=== PATIENT | male | born 1945 | race Two or more races ===

== ENCOUNTER 2017-03-13 11:56 | Inpatient (IN) | payer OTHER ==
[~2017-03-13] VITALS: Ht 165.1 cm; Wt 86.5 kg
[2017-03-13 13:23] LABS: Basophils # (auto) 0.1 uL; Basophils % (auto) 0.6 % (0.0-2.0); Eosinophils # (auto) 0.1 uL; Eosinophils % (auto) 1.6 % (0.0-7.0); Hemoglobin 14.1 g/dL (13.5-17.5); Lymphocytes # (auto) 1.7 uL; Lymphocytes % (auto) 19.2 % (10.0-50.0); Mean Corpuscular Hemoglobin 28.8 pg (28.0-32.0); Mean Corpuscular Hgb Conc. 32.9 g/dL (32.0-36.0); Mean Corpuscular Volume 87.5 fL (80.0-100.0); Monocytes # (auto) 0.6 uL; Monocytes % (auto) 7.1 % (0.0-12.0); Neutrophils # (auto) 6.5 uL; Neutrophils % (auto) 71.5 % (37.0-80.0); Platelet Count (auto) 245 10^3/uL (140-450); Red Blood Cells 4.91 10^6/uL (4.5-5.90); Red Cell Distribution Width 13.7 % (11.8-14.3); White Blood Cell 9.1 10^3/uL (4.4-10.8)
[2017-03-13 13:40] LABS: Albumin 3.8 g/dL (3.4-5.0); BUN/Creatinine Ratio 14.3; Bilirubin, Total 0.3 mg/dL (0.2-1.0); Calcium 9.4 mg/dL (8.5-10.1); Magnesium 2.2 mg/dL (1.6-2.6); Potassium 4.4 mmol/L (3.5-5.1); Total Protein 7.5 g/dL (6.4-8.2)
[2017-03-13] MEDS ORDERED: SODIUM CHLORIDE 0.9% 1,000 ML IV ONE (14:09)
[2017-03-13 16:41] LABS: Urine Bacteria NONE SEEN /hpf (None Seen); Urine Blood Negative /uL (Negative); Urine Specific Gravity 1.017 (1.001-1.035); Urine WBC 2 /hpf (0 - 3)
[2017-03-13] MEDS ORDERED: PROMETHAZINE HCL 25 MG/ML 1ML IV ONE (16:45)
[2017-03-13] MEDS ORDERED: NALBUPHINE HCL 10 MG/1ml INJECTION IV ONE (16:45)
[2017-03-13] MEDS ORDERED: metroNIDAZOLE 500MG/100ML 100 ML IV ONE (17:15)
[2017-03-13] MEDS ORDERED: NITROGLYCERIN 0.4 MG SL TAB SL PRN (17:15)
[2017-03-13] MEDS ORDERED: MORPHINE SULFATE 10 MG/ML INJ 1ML SDV IV PRN (17:15)
[2017-03-13] MEDS ORDERED: TEMAZEPAM 15 MG CAP PO PRN (17:15)
[2017-03-13] MEDS ORDERED: MORPHINE SULF INJ 2 MG/ML SYRINGE 1ML IV PRN (17:15)
[2017-03-13] MEDS ORDERED: DEXTROSE (50%) 50ML SYRG IV PRN (17:15)
[2017-03-13] MEDS ORDERED: PANTOPRAZOLE 40 MG/10 ML VIAL IV ONE (17:15)
[2017-03-13] MEDS ORDERED: MORPHINE SULFATE 4 MG/ML SYR/VIAL IV PRN (17:15)
[2017-03-13] MEDS ORDERED: TAMSULOSIN HYDROCHLORIDE 0.4 MG CAP PO ONE (17:15)
[2017-03-13] MEDS ORDERED: PROMETHAZINE HCL 25 MG/ML 1ML IV PRN (17:15)
[2017-03-13] MEDS ORDERED: LORazepam 2MG/ML-1ML VIAL ONE (17:17)
[2017-03-13] MEDS ORDERED: HALOPERIDOL LACTATE 5 MG/ML INJ VIAL ONE (17:43)
[2017-03-13] MEDS ORDERED: HALOPERIDOL LACTATE 5 MG/ML INJ VIAL IV ONE (18:00)
[2017-03-13] MEDS: InsuLIN REG 1unit/0.01ml Soln (100units/ml) SC SCH (18:00)
[2017-03-13] MEDS ORDERED: LORazepam 2MG/ML-1ML VIAL IV ONE (18:00)
[2017-03-13] MEDS ORDERED: THIAMINE HCL 100 MG/ML 2ML VIAL IV ONE (18:15)
[2017-03-13] MEDS: SODIUM CHLORIDE 0.9% 1,000 ML IV SCH ×2 (18:56→23:54)
[2017-03-13] MEDS: cefTRIAXone 1GM/10ml IVPUSH 10 ML IV SCH (19:11)
[2017-03-13] MEDS: metroNIDAZOLE 500MG/100ML 100 ML IV SCH (19:11)
[2017-03-13] MEDS: ACCU-CHEK COMFORT CURVE STRIP VI SCH (19:32)
[2017-03-13] MEDS ORDERED: DILTIAZEM HCL 25 MG/5 ML VIAL IV ONE (21:45)
[2017-03-14] MEDS: LORazepam 0.5 MG TAB PO PRN ×2 (00:18→18:15)
[2017-03-14] MEDS: HALOPERIDOL LACTATE 5 MG/ML INJ VIAL IM PRN (00:18)
[2017-03-14] MEDS: ACCU-CHEK COMFORT CURVE STRIP VI SCH ×4 (00:29→18:14)
[2017-03-14] MEDS: metroNIDAZOLE 500MG/100ML 100 ML IV SCH ×3 (01:28→18:13)
[2017-03-14] MEDS: chlordiazePOXIDE HCL 25 MG CAP PO PRN ×3 (01:57→18:15)
[2017-03-14 05:34] LABS: Basophils # (auto) 0 uL; Basophils % (auto) 0.3 % (0.0-2.0); Eosinophils # (auto) 0.2 uL; Eosinophils % (auto) 1.1 % (0.0-7.0); Hematocrit 42.1 % (41.0-53.0); Hemoglobin 13.6 g/dL (13.5-17.5); Lymphocytes % (auto) 21.6 % (10.0-50.0); Mean Corpuscular Hemoglobin 28.5 pg (28.0-32.0); Mean Corpuscular Hgb Conc. 32.3 g/dL (32.0-36.0); Mean Corpuscular Volume 88.3 fL (80.0-100.0); Monocytes # (auto) 1.1 uL; Monocytes % (auto) 7.9 % (0.0-12.0); Neutrophils # (auto) 9.5 uL; Neutrophils % (auto) 69.1 % (37.0-80.0); Nucleated Red Blood Cells % 0.1 %; Platelet Count (auto) 224 10^3/uL (140-450); Red Blood Cells 4.77 10^6/uL (4.5-5.90); Red Cell Distribution Width 13.9 % (11.8-14.3); White Blood Cell 13.7 10^3/uL (4.4-10.8)
[2017-03-14 06:07] LABS: Albumin 3.4 g/dL (3.4-5.0); BUN/Creatinine Ratio 15.9; Bilirubin, Total 0.4 mg/dL (0.2-1.0); Calcium 8.8 mg/dL (8.5-10.1); Potassium 3.8 mmol/L (3.5-5.1); Total Protein 6.8 g/dL (6.4-8.2)
[2017-03-14] MEDS: SODIUM CHLORIDE 0.9% 1,000 ML IV SCH ×3 (06:07→19:20)
[2017-03-14] MEDS: InsuLIN REG 1unit/0.01ml Soln (100units/ml) SC SCH ×4 (06:07→18:00)
[2017-03-14 09:00] VITALS: BP 122/73
[2017-03-14] MEDS: cefTRIAXone 1GM/10ml IVPUSH 10 ML IV SCH (09:17)
[2017-03-14] MEDS: PANTOPRAZOLE 40 MG/10 ML VIAL IV SCH (09:17)
[2017-03-14] MEDS: THIAMINE HCL 100 MG/ML 2ML VIAL IV SCH (09:18)
[2017-03-14 09:37] VITALS: BP 122/73
[2017-03-14] MEDS ORDERED: ATOR40TA52 PO (12:12)
[2017-03-14] MEDS ORDERED: TRAZ100T2 PO (12:12)
[2017-03-14] MEDS ORDERED: ASPI81TA27 PO (12:12)
[2017-03-14] MEDS ORDERED: CARV3.1240 PO (12:12)
[2017-03-14 13:00] VITALS: BP 108/56
[2017-03-14 17:44] VITALS: BP 137/78
[2017-03-14 21:42] VITALS: BP 132/75
[2017-03-15] MEDS: LORazepam 0.5 MG TAB PO PRN ×2 (00:11→15:41)
[2017-03-15] MEDS: ACCU-CHEK COMFORT CURVE STRIP VI SCH ×4 (00:11→17:42)
[2017-03-15] MEDS: metroNIDAZOLE 500MG/100ML 100 ML IV SCH ×3 (00:26→17:24)
[2017-03-15] MEDS ORDERED: HYDROcodone-ACET 5/325MG TAB PO ONE (05:15)
[2017-03-15] MEDS: SODIUM CHLORIDE 0.9% 1,000 ML IV SCH ×3 (05:20→15:54)
[2017-03-15 05:53] VITALS: BP 119/67
[2017-03-15] MEDS: InsuLIN REG 1unit/0.01ml Soln (100units/ml) SC SCH ×4 (05:57→17:43)
[2017-03-15 06:50] LABS: Basophils # (auto) 0 uL; Basophils % (auto) 0.4 % (0.0-2.0); Eosinophils # (auto) 0.2 uL; Eosinophils % (auto) 1.8 % (0.0-7.0); Hematocrit 38.8 % (41.0-53.0); Hemoglobin 12.9 g/dL (13.5-17.5); Lymphocytes # (auto) 2.3 uL; Lymphocytes % (auto) 20.6 % (10.0-50.0); Mean Corpuscular Hgb Conc. 33.2 g/dL (32.0-36.0); Mean Corpuscular Volume 87.3 fL (80.0-100.0); Monocytes # (auto) 0.8 uL; Monocytes % (auto) 7.6 % (0.0-12.0); Neutrophils # (auto) 7.8 uL; Neutrophils % (auto) 69.6 % (37.0-80.0); Nucleated Red Blood Cells % 0.1 %; Platelet Count (auto) 205 10^3/uL (140-450); Red Blood Cells 4.44 10^6/uL (4.5-5.90); Red Cell Distribution Width 13.5 % (11.8-14.3); White Blood Cell 11.1 10^3/uL (4.4-10.8)
[2017-03-15 07:00] LABS: BUN/Creatinine Ratio 9.3; Calcium 8.4 mg/dL (8.5-10.1); Potassium 3.7 mmol/L (3.5-5.1)
[2017-03-15 08:34] VITALS: BP 152/83
[2017-03-15] MEDS: PANTOPRAZOLE 40 MG/10 ML VIAL IV SCH (10:47)
[2017-03-15] MEDS: THIAMINE HCL 100 MG/ML 2ML VIAL IV SCH (10:47)
[2017-03-15] MEDS: cefTRIAXone 1GM/10ml IVPUSH 10 ML IV SCH (11:31)
[2017-03-15 13:00] VITALS: BP 149/73
[2017-03-15] MEDS: HALOPERIDOL LACTATE 5 MG/ML INJ VIAL IM PRN (15:08)
[2017-03-15 17:00] VITALS: BP 157/88
== END 2017-03-15 19:43 | DRG 444 ==
LOC: EDBD 11:56 → ER 11:56 → TELE 11:57 → TELE-WESTW 03-14 09:00
PROVIDERS: ADMIT Internal Medicine; ATTEND Internal Medicine
DX: K80.20 Calculus of gallbladder without cholecystitis without obstruction (principal); K85.90 Acute pancreatitis without necrosis or infection, unspecified; F03.90 Unspecified dementia, unspecified severity, without behavioral disturbance, psychotic disturbance, mood disturbance, and anxiety; F10.20 Alcohol dependence, uncomplicated; F17.210 Nicotine dependence, cigarettes, uncomplicated; I10 Essential (primary) hypertension; I25.10 Atherosclerotic heart disease of native coronary artery without angina pectoris; K52.9 Noninfective gastroenteritis and colitis, unspecified; K57.30 Diverticulosis of large intestine without perforation or abscess without bleeding; K57.90 Diverticulosis of intestine, part unspecified, without perforation or abscess without bleeding; E11.9 Type 2 diabetes mellitus without complications; Z95.5 Presence of coronary angioplasty implant and graft; I25.2 Old myocardial infarction; Z86.73 Personal history of transient ischemic attack (TIA), and cerebral infarction without residual deficits
CPT/HCPCS: 36415; 51702; 71045; 74176; 74181; 76705; 80048; 80053; 80061; 81001; 82150; 82962; 83036; 83690; 83735; 84443; 85025; 93005; 96365; 96372; 96375; 96376; C9113; J1815; J3490